=== PATIENT | female | born 1980 | race Hispanic/Latino ===

== ENCOUNTER 2020-12-22 10:20 | Outpatient (CLI) | payer OTHER, SELFPAY ==
[2020-12-22 10:56] LABS: Basophils Percent Auto 0.3 % (0.2-1.2); Eosinophils Absolute Auto 0.2 K/mm3 (0-0.3); Eosinophils Percent Auto 2.4 % (0-4.4); Hematocrit 37.7 % (37.0-47.0); Hemoglobin 12.8 g/dL (12.0-15.0); Immature Granulocyte Absolute 0.07 K/mm3 (0.00-0.031); Immature Granulocyte Percent A 0.8 % (0-0.5); Lymphocytes Absolute Auto 2.69 K/mm3 (0.9-3.2); Lymphocytes Percent Auto 30.7 % (18.3-44.2); Mean Corpuscular Hemoglobin 28.6 pg (26-34); Mean Corpuscular Volume 84.3 fl (80-100); Mean Platelet Volume 9.1 fl (7.4-10.4); Monocytes Absolute Auto 0.5 K/mm3 (0.1-0.6); Monocytes Percent Auto 5.9 % (2.6-8.5); Neutrophils Absolute Auto 5.2 K/mm3 (1.3-6.7); Neutrophils Percent Auto 59.9 % (45.5-73.1); Platelet Count Result 298 k/mm3 (150-375); Red Blood Count 4.47 M/mm3 (4.2-5.4); Red Cell Distribution Width 13.5 % (11.5-14.5); White Blood Count 8.8 K/mm3 (4.5-10.0)
[2020-12-22 10:59] LABS: Hemoglobin A1C 5.3 % (<5.7)
[2020-12-22 11:05] LABS: Alanine Aminotransferase 20 U/L (4-35); Albumin Level 4.7 g/dL (3.5-5.1); Alkaline Phosphatase 53 U/L (38-126); Anion Gap 9 mmol/L (8-16); Aspartate Amino Transferase 20 U/L (14-36); Bilirubin,Total 0.8 mg/dL (0.2-1.3); Blood Urea Nitrogen 8 mg/dL (7-17); Calcium 9.3 mg/dL (8.4-10.2); Carbon Dioxide 27 mmol/L (22-30); Chloride 102 mmol/L (98-107); Cholesterol 172 mg/dL (0-200); Estimated Glomerular Filt Rate > 60; Glucose 111 mg/dL (65-110); HDL Direct 36 mg/dL; Sodium 138 mmol/L (137-145); Triglycerides 164 mg/dL (<150)
[2020-12-22 11:16] LABS: LDL Cholesterol Direct 103 mg/dL
[2020-12-22 13:42] LABS: Vitamin D 25 Hydroxy 37.5 ng/mL
== END 2020-12-22 10:21 | disposition home or self-care (01) ==
LOC: ANHLAB 10:23
PROVIDERS: Visit Provider Obstetrics & Gynecology
DX: Z00.00 Encounter for general adult medical examination without abnormal findings (principal)
CPT/HCPCS: 36415; 80053; 80061; 82306; 83036; 84443; 85025

== ENCOUNTER 2021-10-07 09:13 | Outpatient (CLI) | payer OTHER, SELFPAY ==
--- NOTE | ~2021-10-07 | MM_ITS ---
EXAMINATION: MM screening piedad BI w danial HISTORY: Screening TECHNIQUE: Craniocaudal and mediolateral oblique 3-D tomosynthesis images were obtained and synthetic 2-D images were generated. CAD analysis was submitted and interpreted. COMPARISON: No prior mammogram is available for comparison at this institution.. BREAST PARENCHYMAL COMPOSITION: The breasts are heterogenously dense, which may obscure small masses FINDINGS: There are bilateral asymmetries in the upper outer quadrant of both breasts. There are no s uspicious calcifications or architectural distortion. IMPRESSION: 1. Bilateral breast asymmetries. 2. Additional mammographic views and possible breast ultrasound are recommended. BI-RADS Category 0: Incomplete: Needs additional imaging evaluation. Reviewed, dictated and finalized at location A. IMPRESSION: 1. Bilateral breast asymmetries. 2. Additional mammographic views and possible breast ultrasound are recommended . BI-RADS Category 0: Incomplete: Needs additional imaging evaluation.
== END 2021-10-07 09:14 | disposition home or self-care (01) ==
LOC: ANHIMG 09:16
PROVIDERS: PCP Family Medicine Sports Medicine; Visit Provider Obstetrics & Gynecology
DX: Z12.31 Encounter for screening mammogram for malignant neoplasm of breast (principal); R92.8 Other abnormal and inconclusive findings on diagnostic imaging of breast
CPT/HCPCS: 77063; 77067

== ENCOUNTER 2021-10-18 00:42 | Day surgery (SDC) | payer OTHER, SELFPAY ==
[2021-10-04 13:53] VITALS: BMI 29.7
[2021-10-18 08:55] VITALS: BP 136/89; PULSE 62; RESP 18; TEMP 36.4; O2SAT 100
[2021-10-18] MEDS: LACTATED RINGERS 1,000 ML 150 ML IV CONT (09:12)
--- NOTE | 2021-10-18 09:23 | WPDANESEPPF ---
Anes - Initial Pre Proc Eval Procedure: Operation Date: 10/18/21 10:00 Proposed Procedures p Colonoscopy - Juarez Montoya MD Date/Time: 10/18/21 09:23 Surgeon: Juarez Montoya MD Pre Op Diagnosis: diverticulitis Patient Data Age: 41 Gender: F Height: 1.52 m Weight: 72.2 kg Last Vital Signs Temp 97.6 F 10/18/21 08:55 Pulse 62 10/18/21 08:55 Resp 18 10/18/21 08:55 BP 136/89 10/18/21 08:55 Pulse Ox 100 10/18/21 08:55 O2 Del Method Room Air 10/18/21 08:55 Allergies Allergy/AdvReac Type Severity Reaction Status Date / Time No Known Allergies Allergy Verified 10/18/21 08:54 Home Medications Medication Instructions Recorded Confirmed Type calcium polycarbophil 625 mg 1,250 mg PO DAILY 10/04/21 10/18/21 History tablet (FiberCon) Patient hx anesthesia problems: none Family hx anesthesia problems: none Results Review: All pre-operative results and documents have been reviewed as part of the pre-operative evaluation. [facility] Past Medical History Medical History (Updated 08/30/21 @ 09:23 by Jojo Weathers CMA) Carpal tunnel syndrome Surgical History Surgical History (Updated 08/30/21 @ 09:23 by Jojo Weathers CMA) History of section Hx of tonsillectomy Family History Family History Father Diabetes mellitus Social History Social History (Updated 08/30/21 @ 09:24 by Jojo Weathers CMA) Smoking status: Never smoker Second hand tobacco smoke exposure: No Alcohol intake: never Substance use: never Substance use type: does not use Living arrangements: with family Spiritual care concerns: No Anes - Eval Final PreProcedure Day of Procedure 10/18/21 09:23 Patient weight: obese Heart: regular rate and rhythm Lungs: clear to auscultation Airway: Mallampati scale class II Neurological: alert and oriented Last oral intake: >/= 8 hours ASA classification: II Emergent: no Anesthetic plan: proceed Anesthesia type and monitoring: general GIVS and standard monitoring Results Review: All pre-operative results and documents have been reviewed as part of the pre-operative evaluation. Informed Consent: The patient's anesthetic plan and its attendant risks and benefits were discussed with the patient/family/POA. Questions were solicited and answers provided to the satisfaction of the patient/family/POA.
--- NOTE | 2021-10-18 09:40 | PM.HPGS ---
History of Present Illness History of Present Illness Consent: Risks, benefits, and alternatives have been discussed and questions answered. Patient agrees to proceed with procedure. Chief complaint: diverticulitis Narrative: Charlene Vazquez is a 41 year old female with diverticulitis, now asymptomatic but never had colonoscopy Review of Systems Constitutional: Constitutional: Denies headache(s) and Denies weakness Eyes: Eyes: Denies blurry vision ENT: Reports Normal hearing present, Denies headache(s) and Denies neck pain Cardiovascular: Cardiovascular: Denies chest pain and Denies dyspnea Respiratory: Respiratory: Denies dyspnea Gastrointestinal: Gastrointestinal: Reports no additional gastrointestinal complaints Genitourinary: Genitourinary: Denies dysuria Musculoskeletal: Musculoskeletal: Denies neck pain Integumentary/Breasts: Skin/Breast: Denies dry skin Neurologic: Reports Normal hearing present, Denies headache(s) and Denies weakness Psychiatric: Psychiatric: Denies anxiety Endocrine: Endocrine: Denies change in body appearance Hematologic/Lymphatic: Hematologic/Lymphatic: Denies easy bleeding Allergic/Immunologic: Allergic/Immunologic: Denies urticaria PMFSH Past Medical History Medical History (Updated 10/18/21 @ 09:40 by Juarez Montoya MD) Carpal tunnel syndrome History of diverticulitis Surgical History Surgical History (Updated 08/30/21 @ 09:23 by Jojo Weathers CMA) History of section Hx of tonsillectomy Family History Family History Father Diabetes mellitus Social History Social History (Updated 08/30/21 @ 09:24 by Jojo Weathers CMA) Smoking status: Never smoker Second hand tobacco smoke exposure: No Alcohol intake: never Substance use: never Substance use type: does not use Living arrangements: with family Spiritual care concerns: No Meds Home Medications and Allergies Home Medications Medication Instructions Recorded Confirmed Type calcium polycarbophil 625 mg 1,250 mg PO DAILY 10/04/21 10/18/21 History tablet (FiberCon) Allergies Allergy/AdvReac Type Severity Reaction Status Date / Time No Known Allergies Allergy Verified 10/18/21 08:54 Vital Signs Vital Signs - 24 hr 10/18/21 08:55 Temperature 97.6 F Pulse Rate 62 Respiratory Rate 18 Blood Pressure 136/89 Pulse Oximetry 100 Oxygen Delivery Room Air Exam Const: General: comfortable and no acute distress HENMT: General nose exam: Normal nares present Eyes: General: appearance normal, both eyes and all related structures Neck: Neck: no JVD Resp: Auscultation: clear to auscultation bilaterally Cardio: Rate: regular rate Rhythm: regular rhythm GI: Inspection: non-distended GI Palp: Yes Soft to palpation Skin: General skin exam: normal color Neuro: General: gait normal Speech: normal speech Extrem: General: normal to inspection Psych: Mental Status: mental status grossly normal Assessment and Plan Assessment and plan (1) History of diverticulitis: Code(s): Z87.19 - Personal history of other diseases of the digestive system Status: Acute Assessment and Plan: colonoscopy
[2021-10-18 09:56] VITALS: BP 128/77; PULSE 71; RESP 15; O2SAT 97
[2021-10-18 10:06] VITALS: BP 131/86; PULSE 64; RESP 20; O2SAT 98
[2021-10-18 10:16] VITALS: BP 135/93; PULSE 62; RESP 22; O2SAT 99
== END 2021-10-18 10:27 | disposition home or self-care (01) ==
PROVIDERS: PCP Family Medicine Sports Medicine; Visit Provider Internal Medicine Gastroenterology
PROC: 0DJD8ZZ Inspection of Lower Intestinal Tract, Via Natural or Artificial Opening Endoscopic (ICD-10-PCS; CPT 45378; principal; 2021-10-18 10:00)
DX: Z12.11 Encounter for screening for malignant neoplasm of colon (principal); K57.32 Diverticulitis of large intestine without perforation or abscess without bleeding; K57.30 Diverticulosis of large intestine without perforation or abscess without bleeding; K64.8 Other hemorrhoids; Z87.19 Personal history of other diseases of the digestive system; E66.9 Obesity, unspecified; Z68.31 Body mass index [BMI] 31.0-31.9, adult
CPT/HCPCS: 45378; J2704; J7120

== ENCOUNTER 2021-10-21 11:19 | Outpatient (CLI) | payer OTHER, SELFPAY ==
--- NOTE | ~2021-10-21 | MMUS_ITS ---
EXAMINATION: MM diagnostic piedad BI w danial, US breast BI complete HISTORY: Bilateral mammographic asymmetries reported on 10/07/2021 screening mammogram TECHNIQUE: Additional 3-D tomosynthesis images of both breasts were performed and synthetic 2-D image s were generated. CAD analysis was submitted and interpreted. High resolution complete bilateral [address] ultrasound including all 4 quadrants and subareolar areas was performed. COMPARISON: 10/07/2021 bilateral screening mammogram FINDINGS: MAMMOGRAPHIC FINDINGS: No suspicious mass or architectural distortion, malignant calcification, skin thickening or retractio n is detected. ULTRASOUND: No suspicious mass or shadowing or other significant sonographic abnormality in either breast is dete cted. IMPRESSION: 1. No mammographic evidence of malignancy 2. Routine mammographic screening is recommended BI-RADS Category 1: Negative Reviewed, dictated and finalized at location A. IMPRESSION: 1. No mammographic evidence of malignancy 2. Routine mammographic screening is recommended BI-RADS Category 1: Negative
== END 2021-10-21 11:20 | disposition home or self-care (01) ==
PROVIDERS: PCP Family Medicine Sports Medicine; Visit Provider Obstetrics & Gynecology
DX: R92.8 Other abnormal and inconclusive findings on diagnostic imaging of breast (principal)
CPT/HCPCS: 76641; 77062; 77066; G0279

== ENCOUNTER 2023-08-04 10:10 | Outpatient (CLI) | payer OTHER, SELFPAY ==
--- NOTE | ~2023-08-04 | MM_ITS ---
EXAMINATION: MM screening piedad BI w danial HISTORY: Screening TECHNIQUE: Craniocaudal and mediolateral oblique 3-D tomosynthesis images were obtained and synthetic 2-D images were generated. CAD analysis was submitted and interpreted. COMPARISON: Comparison to multiple prior studies sequentially, with oldest reviewed study dated 07/2021. BREAST PARENCHYMAL COMPOSITION: The breasts are heterogeneously dense, which may obscure small masses . FINDINGS: There is no evidence of suspicious mass, calcification, or architectural distortion to sugg est malignancy in either breast. There has been no suspicious interval change. IMPRESSION: 1. No mammographic evidence of malignancy. 2. Recommend routine screening mammography in one year. BI-RADS Category 1: Negative Reviewed, dictated and finalized at location B.
== END 2023-08-04 10:11 | disposition home or self-care (01) ==
LOC: ANHIMG 10:13
PROVIDERS: PCP Family Medicine Sports Medicine; Visit Provider Obstetrics & Gynecology
DX: Z13.21 Encounter for screening for nutritional disorder (principal)
CPT/HCPCS: 77063; 77067

== ENCOUNTER 2025-03-04 14:33 | Emergency (ER) | payer OTHER, SELFPAY ==
--- NOTE | ~2025-03-04 | CT_ITS ---
EXAMINATION: CT abdomen pelvis w con DATE: 03/04/2025 19:14 INDICATION: Hematuria TECHNIQUE: Computed tomography (CT) of the abdomen and pelvis was performed with 100 mL Omnipaque-350 intravenous contrast. Automated exposure control and iterative reconstruction technique were employed. The dose-length product was 476.91 mGy-cm. COMPARISON: None FINDINGS: Lung bases are clear. Heart size is normal. No pericardial or pleural effusion. Multiple gallstones within the partially decompressed normal-appearing gallbladder. No intra or extrahepatic biliary ductal dilation. Liver, spleen, pancreas and bilateral adrenal glands are normal. Bilateral renal cysts the largest on the right measuring 1.5 cm. Moderate diverticulosis with descending and sigmoid colon predominance without adjacent from trace stranding to suggest diverticular colitis. Small bowel and appendix are normal. There are bilateral low-attenuation ovarian cysts/follicles the largest on the right measuring 2.3 cm. Bladder and anteverted, retroflexed uterus are normal. Minimal likely physiologic free fluid in the cul-de-sac. No pathologically enlarged abdominal or pelvic lymphadenopathy. Mild lumbar and lower thoracic spondylosis. IMPRESSION: 1. No acute intra-abdominal/pelvic process. 2. Cholelithiasis. 3. Diverticulosis. Reviewed, dictated and finalized at location A. [employer] APPRENTICE
[2025-03-04 14:36] VITALS: BP 204/94; PULSE 89; RESP 18; TEMP 36.3; O2SAT 99
--- OUTSIDE RECORDS SUMMARY | 2025-03-04 14:36 | XMS_ITS | Clinical Summary ---
Author Organization [facility] [id number] [place] [address] Phone Care Team Providers Care Automotive Parts Counter Person Name Role Phone Gabriel Travis MD Primary Care Provider Allergies No known active allergies Medications VITS W-CA,FE,FA,<1MG , ( VITAMIN ORAL) Take 1 Tab by mouth daily. Active CALCIUM CARBONATE/VITAM IN D3 (CALTRATE 600 + D ORAL) Take 1 Tab by mouth daily. Active FERROUS SULFATE DRIED ORAL Take 1 Tab by mouth daily. Active NIFEdipine (PROCARDIA) 10 mg Oral capsule Take 1 Cap by mouth every 6 hours. For contractions Active cephALEXin (KEFLEX) 500 mg Oral capsule Take 1 Cap by mouth every 8 hours. 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 Gender Identity Not on file Sexual Orientation Not on file Occupation Industry Job Start Date Job End Date Not on file Not on file Not on file Not on file Plan of Treatment Health Maintenance Due Date Last Done Comments DTAP/TDAP/TD VACCINES (1 - Tdap) 2000 HEPATITIS B VACCINES (1 of 3 - 19+ 3-dose series) 03/07 HPV/Cotest (21-29) 2002 CERVICAL CANCER SCREENING 2011 HPV/Cotest (30-65) 2011 PAP SMEAR 2011 BREAST CANCER SCREENING 2021 INFLUENZA VACCINE (#1) 2024 RSV VACCINE (60+ or ) (1 - 1-dose 75+ series) 2056 HPV VACCINES (No Doses Required) Completed Care Teams Automotive Parts Counter Person Relationship Specialty Start Date End Date Gabriel Travis MD [facility] [place] [address] PCP - General Family Practice 06/06/11
--- OUTSIDE RECORDS SUMMARY | 2025-03-04 14:36 | XMS_ITS | Clinical Summary ---
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 Gender Identity Not on file Sexual Orientation Not on file Plan of Treatment Health Maintenance Due Date Last Done Comments Hepatitis C Virus (HCV) Screening 1981 TdaP Immunization 1981 Hepatitis B Immunization (1 of 3 - 19+ 3-dose series) 2000 Pap Smear 2002 Human Papillomavirus (HPV) Immunization (1 - 3-dose SCDM series) 2008 Cervical Cancer Screening (CCS) 2011 HPV/Cotest 2011 Influenza Immunization (#1) 2024 SARS-COV-2 Immunization ( season) 2024 Respiratory Syncytial Virus (RSV) Immunization (Adult) (1 - 1-dose 75+ series) 2056 Meningococcal Immunization (ACWY) Aged Out No longer eligible based on patient's age to complete this topic Pneumococcal Immunization Combined Aged Out No longer eligible based on patient's age to complete this topic Rotavirus Immunization Aged Out No lo nger eligible based on patient's age to complete this topic
--- OUTSIDE RECORDS SUMMARY | 2025-03-04 16:08 | XMS_ITS | Clinical Summary ---
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
--- NOTE | 2025-03-04 16:14 | ED_ITS ---
HPI - Female Genitourinary General Chief complaint: Urogenital-Female <Kusum Zuluaga PA-C - Last Filed: 03/04/25 16:18> Stated complaint: hematuria <LUZ Reina Last Filed: 03/04/25 16:18> Time Seen by Provider: 03/04/25 16:10 <LUZ Reina Last Filed: 03/04/25 16:18> Focused HPI: Patient is a 44 year old female who presents the ED with report of abnormal vaginal bleeding. Patient reports she finished her normal menstrual cycle on 02/06 and began having vaginal bleeding again on 02/19. She has had persistent bleeding over the past 2 weeks. States bleeding became very heavy 3 days ago and she has been passing large blood clots. She states today she has been going through a pad multiple times per hour. Is feeling somewhat dizzy and lightheaded. Denies history of previous heavy menstrual cycles. Denies abdominal cramping. Also reported having some blood in her urine yesterday, but states this has resolved. GENERAL: Well-appearing, well-nourished, and in no acute distress. HEAD: Normocephalic, atraumatic. CHEST: Clear to auscultation. ?No respiratory distress. HEART: Regular rate and rhythm.? NEURO: ?Alert and oriented x3. Patient screened in triage and initial orders placed.? ?Additional care and disposition to be based upon?diagnostic testing and treatment. <LUZ Reina Last Filed: 03/04/25 16:18> Source: patient <LUZ Reina Last Filed: 03/04/25 16:18> Mode of arrival: ambulatory <LUZ Reina Last Filed: 03/04/25 16:18> Limitations: no limitations <LUZ Reina Last Filed: 03/04/25 16:18> Related Data Home medications: Home Medications ?Medication ?Instructions ?Recorded ?Confirmed ?Last Taken ?Type calcium polycarbophil 625 mg 1,250 mg PO DAILY 2 05/01/24 Unknown History tablet (FiberCon) <LUZ Reina Last Filed: 03/04/25 16:18> Allergies/Adverse reactions: Allergies Allergy/AdvReac Type Severity Reaction Status Date / Time No Known Allergies Allergy Verified 03/04/25 14:42 <LUZ Reina Last Filed: 03/04/25 16:18> Review of Systems 2 Review of Systems: All systems reviewed & are unremarkable except as noted in HPI and below <Khadra Bates PA-C - Last Filed: 03/04/25 20:53> [facility] Past Medical History Medical History: Medical History History of diverticulitis Carpal tunnel syndrome <LUZ Reina Last Filed: 03/04/25 16:18> Surgical History Surgical History: Surgical History H/O tubal ligation History of carpal tunnel surgery of right wrist Hx of tonsillectomy History of section with tubal ligation <LUZ Reina Last Filed: 03/04/25 16:18> Family History Family History: Family History Father Diabetes mellitus <LUZ Reina Last Filed: 03/04/25 16:18> Social History Social History: Social History Smoking status: Never smoker Second hand tobacco smoke exposure: No Alcohol intake: never Substance use: never Substance use type: does not use Lack of Transportation: No Lack of Food: Never True Current Housing: I Have Housing Concerned About Future Housing: No Difficulty Paying Gas/Electric Bills: No Difficulty Paying for Meds: No Currently Unemployed: No Living arrangements: with family Gender identity (if verbalized by the patient): Female Sexual Orientation (if Verbalized by the Patient): Straight or Heterosexual Spiritual care concerns: No <LUZ Reina Last Filed: 03/04/25 16:18> Exam 2 Narrative: GENERAL: Well-appearing, well-nourished, and in no acute distress. HEAD: Normocephalic, atraumatic. EYES: EOMI. CHEST: Clear to auscultation. No respiratory distress. No wheezes rales or rhonchi HEART: Regular rate and rhythm. No murmur heard. Normal peripheral pulses. ABDOMEN: Soft, nontender, nondistended, normal active bowel sounds. EXTREMITIES: Normal range of motion. No edema. SKIN: Warm, dry, no rash. NEURO: No focal deficits. Alert and oriented x3. PSYCH: Normal mood and affect <LUZ Cook Last Filed: 03/04/25 20:53> Course Vital Signs Vital signs: Vital Signs Temperature 97.4 F L 03/04/25 14:36 Pulse Rate 89 03/04/25 14:36 Respiratory Rate 18 03/04/25 14:36 Blood Pressure 204/94 H 03/04/25 14:36 Pulse Oximetry 99 03/04/25 14:36 Oxygen Delivery Room Air 03/04/25 14:36 Temperature 97.4 F L 03/04/25 14:36 Pulse Rate 80 03/04/25 18:45 Respiratory Rate 16 03/04/25 18:45 Blood Pressure 171/92 H 03/04/25 18:45 Pulse Oximetry 97 03/04/25 18:45 Oxygen Delivery Room Air 03/04/25 14:36 <LUZ Reina Last Filed: 03/04/25 16:18> Vital Signs Temperature 97.4 F L 03/04/25 14:36 Pulse Rate 89 03/04/25 14:36 Respiratory Rate 18 03/04/25 14:36 Blood Pressure 204/94 H 03/04/25 14:36 Pulse Oximetry 99 03/04/25 14:36 Oxygen Delivery Room Air 03/04/25 14:36 Temperature 97.4 F L 03/04/25 14:36 Pulse Rate 80 03/04/25 18:45 Respiratory Rate 16 03/04/25 18:45 Blood Pressure 171/92 H 03/04/25 18:45 Pulse Oximetry 97 03/04/25 18:45 Oxygen Delivery Room Air 03/04/25 14:36 <LUZ Cook Last Filed: 03/04/25 20:53> [facility] Narrative Medical decision making narrative: MSE by BOB in triage. <Kusum Zuluaga PA-C - Last Filed: 03/04/25 16:18> MSE by BOB in triage. Patient presents emergency department for heavy vaginal bleeding. Also endorsing a possible episode of hematuria. Patient is afebrile and nontoxic appearing. Her vitals are stable. Hemoglobin is normal. Metabolic panel without concerning findings. Urine without evidence of infection. test negative. CT abdomen and pelvis without acute findings. Patient updated on her workup and agrees with plan of care. Instructed to have further follow- up with her snowmobile mechanic. She was given warnings to return to the ER <Khadra Bates PA-C - Last Filed: 03/04/25 20:53> Differential Diagnosis Differential Diagnosis: abnormal uterine bleeding, anemia, colt-menopause, kidney stone, UTI < LUZ Cook Last Filed: 03/04/25 20:53> Lab Data [facility] Lab Attestation statement: I personally reviewed the patient's lab results. <Khadra Bates PA-C - Last Filed: 03/04/25 20:53> Result diagrams: 03/04/25 16:21 03/04/25 16:21 <Kusum Zuluaga PA-C - Last Filed: 03/04/25 16:18> Labs: Lab Results 03/04/25 03/04/25 03/04/25 Range/Units 16:21 18:45 18:46 WBC 8.8 (4.5-10.0) K/mm3 RBC 4.54 (4.2-5.4) M/mm3 Hgb 12.9 (12.0-15.0) g/dL Hct 36.9 L (37.0-47.0) % MCV 81.3 (80-100) fl MCH 28.4 (26-34) pg MCHC 35.0 (32-36) g/dl RDW 13.8 (11.5-14.5) % Plt Count 311 (150-375) k/mm3 MPV 8.6 (7.4-10.4) fl Immature Gran % (Auto) 0.6 H (0-0.5) % Neut % (Auto) 62.5 (45.5-73.1) % Lymph % (Auto) 26.8 (18.3-44.2) % [place] % (Auto) 6.8 (2.6-8.5) % Eos % (Auto) 2.8 (0-4.4) % Baso % (Auto) 0.5 (0.2-1.2) % Lymph # (Auto) 2.36 (0.9-3.2) K/mm3 [place] # (Auto) 0.6 (0.1-0.6) K/mm3 Eos # (Auto) 0.3 (0-0.3) K/mm3 Baso # (Auto) 0.0 (0.0-0.1) K/mm3 Abs Immat Gran (auto) 0.05 H (0.00-0.031) K/mm3 Absolute Neuts (auto) 5.5 (1.3-6.7) K/mm3 Absolute Nucleated RBC 0.000 (0.0-0.012) K/mm3 Nucleated RBC % 0.0 (0.0-0.2) % PT 13.2 (11.1-14.7) Seconds INR 1.0 APTT 24.7 (22.3-36.8) Seconds Sodium 137 (137-145) mmol/L Potassium 3.4 (3.4-5.0) mmol/L Chloride 105 (98-107) mmol/L Carbon Dioxide 26 (22-30) mmol/L Anion Gap 6 (4-12) mmol/L BUN 9 (7-17) mg/dL Creatinine 0.51 L (0.7-1.0) mg/dL Estim Creat Clear Calc 116 ml/min Estimated GFR > 60 (59 - ) Glucose 128 H (65-110) mg/dL Calcium 9.2 (8.4-10.2) mg/dL Total Bilirubin 0.9 (0.2-1.3) mg/dL AST 24 (14-36) U/L ALT 20 (6-35) U/L Alkaline Phosphatase 59 (38-126) U/L Total Protein 8.3 H (6.3-8.2) g/dL Albumin 4.6 (3.5-5.1) g/dL Urine Color Yellow (Yellow) Urine Appearance Cloudy H (Clear) Urine pH 7.5 (5.0-9.0) Ur Specific [place] 1.016 (1.001-1.035) Urine Protein 1+ H (Negative) mg/dL Urine Glucose (UA) Negative (Negative) mg/dL Urine Ketones Negative (Negative) mg/dL Ur Blood (Man) 2+ H (Negative) Urine Nitrate Negative (Negative) Urine Bilirubin Negative (Negative) Urine Urobilinogen 0.2 (<2.0) mg/dL Leukocyte Esterase Rfl Negative (Negative) JERICHO/UL Urine RBC 6-10 H (0-2) /hpf Urine WBC 0-5 (0-3) /hpf Ur Squamous Epith Cells None seen (Few) /hpf Urine Bacteria None seen /hpf Urine Casts 0-2 POC Urine HCG, Qual Negative (Negative) Blood Type A Positive Antibody Screen Negative <Kusum Zuluaga PA-C - Last Filed: 03/04/25 16:18> Lab Results 03/04/25 03/04/25 03/04/25 Range/Units 16:21 18:45 18:46 WBC 8.8 (4.5-10.0) K/mm3 RBC 4.54 (4.2-5.4) M/mm3 Hgb 12.9 (12.0-15.0) g/dL Hct 36.9 L (37.0-47.0) % MCV 81.3 (80-100) fl MCH 28.4 (26-34) pg MCHC 35.0 (32-36) g/dl RDW 13.8 (11.5-14.5) % Plt Count 311 (150-375) k/mm3 MPV 8.6 (7.4-10.4) fl Immature Gran % (Auto) 0.6 H (0-0.5) % Neut % (Auto) 62.5 (45.5-73.1) % Lymph % (Auto) 26.8 (18.3-44.2) % [place] % (Auto) 6.8 (2.6-8.5) % Eos % (Auto) 2.8 (0-4.4) % Baso % (Auto) 0.5 (0.2-1.2) % Lymph # (Auto) 2.36 (0.9-3.2) K/mm3 [place] # (Auto) 0.6 (0.1-0.6) K/mm3 Eos # (Auto) 0.3 (0-0.3) K/mm3 Baso # (Auto) 0.0 (0.0-0.1) K/mm3 Abs Immat Gran (auto) 0.05 H (0.00-0.031) K/mm3 Absolute Neuts (auto) 5.5 (1.3-6.7) K/mm3 Absolute Nucleated RBC 0.000 (0.0-0.012) K/mm3 Nucleated RBC % 0.0 (0.0-0.2) % PT 13.2 (11.1-14.7) Seconds INR 1.0 APTT 24.7 (22.3-36.8) Seconds Sodium 137 (137-145) mmol/L Potassium 3.4 (3.4-5.0) mmol/L Chloride 105 (98-107) mmol/L Carbon Dioxide 26 (22-30) mmol/L Anion Gap 6 (4-12) mmol/L BUN 9 (7-17) mg/dL Creatinine 0.51 L (0.7-1.0) mg/dL Estim Creat Clear Calc 116 ml/min Estimated GFR > 60 (59 - ) Glucose 128 H (65-110) mg/dL Calcium 9.2 (8.4-10.2) mg/dL Total Bilirubin 0.9 (0.2-1.3) mg/dL AST 24 (14-36) U/L ALT 20 (6-35) U/L Alkaline Phosphatase 59 (38-126) U/L Total Protein 8.3 H (6.3-8.2) g/dL Albumin 4.6 (3.5-5.1) g/dL Urine Color Yellow (Yellow) Urine Appearance Cloudy H (Clear) Urine pH 7.5 (5.0-9.0) Ur Specific [place] 1.016 (1.001-1.035) Urine Protein 1+ H (Negative) mg/dL Urine Glucose (UA) Negative (Negative) mg/dL Urine Ketones Negative (Negative) mg/dL Ur Blood (Man) 2+ H (Negative) Urine Nitrate Negative (Negative) Urine Bilirubin Negative (Negative) Urine Urobilinogen 0.2 (<2.0) mg/dL Leukocyte Esterase Rfl Negative (Negative) JERICHO/UL Urine RBC 6-10 H (0-2) /hpf Urine WBC 0-5 (0-3) /hpf Ur Squamous Epith Cells None seen (Few) /hpf Urine Bacteria None seen /hpf Urine Casts 0-2 POC Urine HCG, Qual Negative (Negative) Blood Type A Positive Antibody Screen Negative <Khadra Bates PA-C - Last Filed: 03/04/25 20:53> Imaging Data Radiologist's impression: ITS Impressions Abdomen/Pelvis CT 03/04/25 19:33 IMPRESSION: 1. No acute intra-abdominal/pelvic process. 2. Cholelithiasis. 3. Diverticulosis. <LUZ Reina Last Filed: 03/04/25 16:18> ITS Impressions Abdomen/Pelvis CT 03/04/25 19:33 IMPRESSION: 1. No acute intra-abdominal/pelvic process. 2. Cholelithiasis. 3. Diverticulosis. <Khadra Bates PA-C - Last Filed: 03/04/25 20:53> Critical Care Time Critical Care Time Critical Care Time: No <LUZ Cook Last Filed: 03/04/25 20:53> Discharge Plan Discharge Clinical Impression: Abnormal uterine bleeding <LUZ Reina Last Filed: 03/04/25 16:18> Patient Disposition: Home <LUZ Reina Last Filed: 03/04/25 16:18> Condition: Stable <LUZ Reina Last Filed: 03/04/25 16:18> Instructions: Abnormal (Dysfunctional) Uterine Bleeding (ED) <LUZ Reina Last Filed: 03/04/25 16:18> Additional Instructions: Return to the ER if you experience fever, shortness of breath, abdominal pain with nausea and vomiting, you are unable to keep down liquids or solids, pain or burning with urination, blood in the urine, you pass out, or any other symptoms that are concerning to you Remain well hydrated Follow up with your snowmobile mechanic <LUZ Reina Last Filed: 03/04/25 16:18> Patient Language: Japanese <Kusum Zuluaga PA-C - Last Filed: 03/04/25 16:18> Prescriptions: No Action calcium polycarbophil [FiberCon] 625 mg Tablet 1,250 mg PO DAILY <Kusum Zuluaga PA-C - Last Filed: 03/04/25 16:18> Follow-up/Referrals: Norberto,Deandre Pereira MD [Primary Care Provider, [facility]] <Kusum Zuluaga PA-C - Last Filed: 03/04/25 16:18>
[2025-03-04 16:26] LABS: Hematocrit 36.9 % (37.0-47.0); Hemoglobin 12.9 g/dL (12.0-15.0); Immature Granulocyte Percent A 0.6 % (0-0.5); Lymphocytes Absolute Auto 2.36 K/mm3 (0.9-3.2); Mean Corpuscular HGB Conc 35.0 g/dl (32-36); Mean Corpuscular Hemoglobin 28.4 pg (26-34); Mean Corpuscular Volume 81.3 fl (80-100); Nucleated Red Blood Cells Absolute Auto 0.000 K/mm3 (0.0-0.012); Nucleated Red Blood Cells Perc 0.0 % (0.0-0.2); Platelet Count Result 311 k/mm3 (150-375); Red Blood Count 4.54 M/mm3 (4.2-5.4); White Blood Count 8.8 K/mm3 (4.5-10.0)
[2025-03-04 16:36] LABS: Alanine Aminotransferase 20 U/L (6-35); Albumin Level 4.6 g/dL (3.5-5.1); Alkaline Phosphatase 59 U/L (38-126); Anion Gap 6 mmol/L (4-12); Aspartate Amino Transferase 24 U/L (14-36); Bilirubin,Total 0.9 mg/dL (0.2-1.3); Blood Urea Nitrogen 9 mg/dL (7-17); Calcium 9.2 mg/dL (8.4-10.2); Carbon Dioxide 26 mmol/L (22-30); Chloride 105 mmol/L (98-107); Estimated CRCL calculation 116 ml/min; Estimated Glomerular Filt Rate > 60; Glucose 128 mg/dL (65-110); Potassium 3.4 mmol/L (3.4-5.0); Sodium 137 mmol/L (137-145); Total Protein 8.3 g/dL (6.3-8.2)
[2025-03-04 16:42] LABS: INR 1.0; Partial Thromboplastin Time 24.7 Seconds (22.3-36.8); Prothrombin Time 13.2 Seconds (11.1-14.7)
[2025-03-04 17:08] VITALS: BP 170/96; PULSE 87; RESP 15; O2SAT 99
[2025-03-04 18:45] VITALS: BP 171/92; PULSE 80; RESP 16; O2SAT 97
[2025-03-04 18:48] LABS: BEDSIDEPREGUCG Negative (Negative)
[2025-03-04 19:30] VITALS: BP 162/78; PULSE 73; RESP 16; O2SAT 98
[2025-03-04 20:04] LABS: Add Urine Microscopic? YES; Appearance Urine Cloudy (Clear); Glucose Urine UA Negative (Negative); Leukocyte Esterase Ur Negative LEU/UL (Negative); Nitrate Urine Negative (Negative); Non Pathogenic Casts 0-2; Specific Grav Ur 1.016 (1.001-1.035)
[2025-03-04 20:30] VITALS: BP 169/93; PULSE 90; RESP 18; TEMP 36.9; O2SAT 98
== END 2025-03-04 21:00 | disposition home or self-care (01) ==
PROVIDERS: Physician Assistant; Emergency Provider Physician Assistant; PCP Family Medicine Sports Medicine
DX: N93.8 Other specified abnormal uterine and vaginal bleeding (principal)
CPT/HCPCS: 36415; 74177; 80053; 81001; 81025; 85025; 85610; 85730; 86850; 86900; 86901; 99284; Q9967